=== PATIENT | male | born 1995 | race Caucasian/White ===

== ENCOUNTER 2019-08-04 17:30 | Emergency (ER) | payer OTHER ==
[2019-08-04 17:47] VITALS: BP 127/78; PULSE 76; TEMP 98.5; BMI 27.5
[2019-08-04] MEDS ORDERED: DIPHTH,PERTUSS(ACELL),TET 0.5 ML DISP.SYRIN IM ONE ×2 (17:50→17:57)
--- NOTE | 2019-08-04 17:51 | PDOC ---
History of Present Illness - General Chief Complaint: Injury Stated Complaint: LEFT HAND LACERATION Time Seen by Provider: 08/04/19 17:31 Past History - Past Medical History Allergies/Adverse Reactions: Allergies Allergy/AdvReac Type Severity Reaction Status Date / Time No Known Allergies Allergy Verified 08/04/19 17:34 Home Medications: Ambulatory Orders Albuterol Sulfate Inhaler - [Ventolin Hfa Inhaler -] 1 - 2 inh PO QID PRN Asthma: Yes COPD: No - Immunization History Immunization Up to Date: Yes - Psycho Social/Smoking Cessation Hx Smoking History: Never smoked Have you smoked in the past 12 months: No Information on smoking cessation initiated: No Hx Alcohol Use: (social) *Physical Exam - Vital Signs Last Vital Signs Temp Pulse Resp BP Pulse Ox 98.5 F 76 18 127/78 99 08/04/19 17:30 08/04/19 17:30 08/04/19 17:30 08/04/19 17:30 08/04/19 17:30 Discharge - Discharge Information Problems reviewed: Yes Clinical Impression/Diagnosis: Hand laceration Qualifiers: Encounter type: initial encounter Foreign body presence: without foreign body Laterality: left Qualified Code(s): S61.412A - Laceration without foreign body of left hand, initial encounter Condition: Improved Disposition: HOME - Admission No - Additional Discharge Information Plan of Treatment: Clean and dry Change dressing daily and/or if is getting wet Return to ED for wound check in 3 days Sutures out in12-14 days Prescription Drug Monitoring Program (I-STOP) results: I-STOP reviewed and no issues identified - Follow up/Referral - Patient Discharge Instructions Patient Printed Discharge Instructions: DI for Laceration Repair -- Simple, DTaP Vaccine - Post Discharge Activity Work/Back to School Note: Back to Work
[2019-08-04] MEDS ORDERED: SULFAMETHOXAZOLE/TRIMETHOPRIM 800MG/160MG D.S. TABLET PO ONE (18:18)
[2019-08-04] MEDS ORDERED: SULFAMETHOXAZOLE/TRIMETHOPRIM 800MG/160MG D.S. TABLET ONE (18:27)
[2019-08-04] MEDS ORDERED: SULFAMETHOXAZOLE/TRIMETHOPRIM 800MG/160MG D.S. TABLET PO SCH (22:00)
== END 2019-08-04 18:50 | disposition home or self-care (01) ==
LOC: FER 17:30
PROC: 3E0234Z Introduction of Serum, Toxoid and Vaccine into Muscle, Percutaneous Approach (ICD-10-PCS; principal; 2019-08-04)
PROC: 0HQGXZZ Repair Left Hand Skin, External Approach (ICD-10-PCS; 2019-08-04)
DX: S61.412A Laceration without foreign body of left hand, initial encounter (principal); J45.909 Unspecified asthma, uncomplicated; W45.8XXA Other foreign body or object entering through skin, initial encounter; Y93.9 Activity, unspecified; Y92.9 Unspecified place or not applicable
CPT/HCPCS: 90715; 99282-25

== ENCOUNTER 2019-08-15 20:10 | Emergency (ER) | payer SELFPAY ==
[2019-08-15 20:20] VITALS: BP 144/78; PULSE 77; TEMP 98.9; BMI 27.3
--- NOTE | 2019-08-26 00:40 | PDOC ---
Documentation entered by Lydia Bang SCRIBE, acting as scribe for Brooke Faye MD. Brooke Faye MD: This documentation has been prepared by the scribeMerritt Lincy, SCRIBE, under my direction and personally reviewed by me in its entirety. I confirm that the documentation accurately reflects all work, treatment, procedures, and medical decision making performed by me. Suture Removal/Wound Check HPI - History of Present Illness Chief Complaint: Suture/Staple Removal(Here) Stated Complaint: SUTURE REMOVAL History Source: Yes: Patient - Onset of Previous Treatment Comment:: 08/15/19 20:26 The patient is a 24 year old male with no reported past medical history who presents to the emergency department for left hand suture removal. The patient reports the suture was placed 10 days ago, after he accidentally poked himself on the left hand, while he was covering the knife with the sheath. Past History - Past Medical History Allergies/Adverse Reactions: Allergies Allergy/AdvReac Type Severity Reaction Status Date / Time No Known Allergies Allergy Verified 08/04/19 17:34 Home Medications: Ambulatory Orders Albuterol Sulfate Inhaler - [Ventolin Hfa Inhaler -] 1 - 2 inh PO QID PRN Asthma: Yes COPD: No - Immunization History Immunization Up to Date: Yes - Psycho Social/Smoking Cessation Hx Smoking History: Never smoked Have you smoked in the past 12 months: No Hx Alcohol Use: (social) *Review of Systems - Review of Systems Able to Perform ROS?: Yes Comments:: 08/15/19 20:28 GENERAL/CONSTITUTIONAL: No fever or chills. No weakness. HEAD, EYES, EARS, NOSE AND THROAT: No change in vision. No ear pain or discharge. No sore throat. CARDIOVASCULAR: No chest pain or shortness of breath. RESPIRATORY: No cough, wheezing, or hemoptysis. GASTROINTESTINAL: No nausea, vomiting, diarrhea or constipation. GENITOURINARY: No dysuria, frequency, or change in urination. MUSCULOSKELETAL: +left hand suture removal. No joint or muscle swelling or pain. No neck or back pain. SKIN: No rash NEUROLOGIC: No headache, vertigo, loss of consciousness, or change in strength/ sensation. ENDOCRINE: No increased thirst. No abnormal weight change. HEMATOLOGIC/LYMPHATIC: No anemia, easy bleeding, or history of blood clots. ALLERGIC/IMMUNOLOGIC: No hives or skin allergy. *Physical Exam - Vital Signs Last Vital Signs Temp Pulse Resp BP Pulse Ox 98.9 F 77 14 144/78 98 08/15/19 20:11 08/15/19 20:11 08/15/19 20:11 08/15/19 20:11 08/15/19 20:11 - Physical Exam Comments: 08/15/19 20:30 GENERAL: Awake, alert, and fully oriented, in no acute distress HEAD: No signs of trauma EYES: PERRLA, EOMI, sclera anicteric, conjunctiva clear ENT: Auricles normal inspection, hearing grossly normal, nares patent, oropharynx clear without exudates. NECK: Normal ROM, supple. LUNGS: Breath sounds equal, clear to auscultation bilaterally. HEART: Regular rate and rhythm, normal S1 and S2, no murmurs, rubs or gallops ABDOMEN: Soft, nontender. EXTREMITIES: Normal range of motion, no edema. +well healed. 3 sutures removed from the center of the left palm. NEUROLOGICAL: Cranial nerves II through XII grossly intact. Normal speech, normal gait SKIN: Warm, Dry, normal turgor, no rashes or lesions noted. Discharge - Discharge Information Problems reviewed: Yes Clinical Impression/Diagnosis: Encounter for removal of sutures Condition: Good Disposition: HOME - Admission No - Follow up/Referral - Patient Discharge Instructions - Post Discharge Activity
== END 2019-08-15 20:33 | disposition home or self-care (01) ==
LOC: FER 20:10
DX: Z48.02 Encounter for removal of sutures (principal)
CPT/HCPCS: 99281-25